=== PATIENT | male | born 1980 | race Caucasian/White ===

== ENCOUNTER 2021-10-29 20:19 | Emergency (ER) | payer BC, SELFPAY ==
[2021-10-29 20:23] VITALS: BP 128/90; PULSE 56; RESP 18; TEMP 36.7; O2SAT 96; BMI 30.5
--- NOTE | 2021-10-29 20:39 | ED.GENADULT ---
HPI - General Adult General Chief complaint: Unspecified Complaint, Adult Stated complaint: Fishing hook in face Time Seen by Provider: 10/29/21 20:24 History of Present Illness HPI narrative: This 41-year-old male comes in with a fishhook stuck in his cheek. A friend was casting the hook and it caught him in the cheek and it got yanked into the tissue with the дмитрий on the hook. He attempted to push the hook through but was unsuccessful. He states that his tetanus is not up-to-date. Related Data Home Medications Medication Instructions Recorded Confirmed No Known Home Medications 10/29/21 10/29/21 Allergies Allergy/AdvReac Type Severity Reaction Status Date / Time No Known Drug Allergies Allergy Verified 10/29/21 20:27 Review of Systems Status of ROS: Reports: 10 or more systems reviewed and unremarkable except as noted in History and below Narrative: Constitutional: No fevers, no weight gain or loss. Eyes: No discharge. No vision changes. HENT: No congestion, no sore throat, no ear pain. Cardiovascular: No chest pain, no palpitations. Respiratory: No shortness of breath, no wheezes, no cough. Gastrointestinal: No abdominal pain, no vomiting, no diarrhea. Genitourinary: No dysuria, no hematuria. Musculoskeletal: Normal range of motion. Skin: No rashes, no pruritis. Neurological: No dizziness, weakness, sensory change, speech change. Endo/Heme/Allergies: No bruising or bleeding. No polydipsia. Pysch: no suicidality, no anxiety, no insomnia. All other systems reviewed and are negative. PFSH PFS Social History Smoking Status: Never smoker How often do you have a drink containing alcohol: 2-3 times a week AUDIT-C Alcohol total score: 3 Non-prescribed substance use: denies use Exam Narrative: Exam Narrative: Constitutional: Well-developed, well-nourished, no acute distress. HEENT: [place] lodged in the right cheek. Neck: Normal range of motion. Nontender. Supple. Heart: Intact distal pulses. Lungs: No chest discomfort. No wheezes, rhonchi, or rales. Abdomen: Nontender. Back: Normal range of motion. Extremities: Normal range of motion. No injury. Skin: Intact. No rash. Warm. No erythema or pallor. Neurologic: No altered sensation. No weakness. Alert and oriented. Psychiatric: No suicidality. No anxiety or depression. No insomnia. Nursing notes and vitals signs are reviewed. Const: Vital Signs, click to edit/add: Vital Signs - 24 hr 10/29/21 20:23 Temperature 98.0 F Pulse Rate [Right Pulse Oximeter] 56 L Respiratory Rate 18 Blood Pressure [Le ft Upper Arm] 128/90 H Pulse Oximetry 96 Oxygen Delivery Me thod Room Air Course Vital Signs Vital signs: Initial Vital Signs Temperature 98.0 F 10/29/21 20:23 Temperature Source Temporal Artery Scan 10/29/21 20:23 Pulse Rate 56 L 10/29/21 20:23 Respiratory Rate 18 10/29/21 20:23 Blood Pressure 128/90 H 10/29/21 20:23 Blood Pressure Mean 102 10/29/21 20:23 Blood Pressure Position Sitting 10/29/21 20:23 Pulse Oximetry 96 10/29/21 20:23 Oxygen Delivery Method 10/29/21 20:23 Vital Signs Temperature 98.0 F 10/29/21 20:23 Pulse Rate 56 L 10/29/21 20:23 Respiratory Rate 18 10/29/21 20:23 Blood Pressure 128/90 H 10/29/21 20:23 Pulse Oximetry 96 10/29/21 20:23 Oxygen Delivery Method 10/29/21 20:23 Temperature 98.0 F 10/29/21 20:23 Pulse Rate 56 L 10/29/21 20:23 Respiratory Rate 18 10/29/21 20:23 Blood Pressure 128/90 H 10/29/21 20:23 Pulse Oximetry 96 10/29/21 20:23 Oxygen Delivery Method 10/29/21 20:23 Medical Decision Making MDM Narrative Medical decision making narrative: This patient has a large fishhook with a дмитрий lodged in his right cheek. After cleansing the surface of the wound with alcohol swab I injected 1% lidocaine with epinephrine for anesthesia. With the assistance of a 11. Blade I was able to release the bar been remove the hook. There was a small amount of bleeding which stopped after a minute or 2 with direct pressure. A Band-Aid was applied. There is no need for suture repair as this was a simple puncture wound. The patient did receive a tetanus vaccination. Instructions were given regarding wound care. Discharge Plan Discharge Clinical Impression: Laceration Patient Disposition: Home, Self-Care Condition: Improved Additional Instructions: Keep wound clean and dry. Follow up with MD or return if worsening symptoms occur. Prescriptions: No Action No Known Home Medications Follow Up/Referrals: Augusto Thomas MD [Primary Care Provider] - Stand Alone Forms: [employer] Info Instructions
[2021-10-29] MEDS: TETANUS/DIPHTH/PERTUSSIS 0.5 ML SYRINGE IM (20:51)
== END 2021-10-29 20:57 | disposition home or self-care (01) ==
PROVIDERS: Emergency Provider Emergency Medicine Emergency Medical Services; PCP Internal Medicine
DX: S01.441A Puncture wound with foreign body of right cheek and temporomandibular area, initial encounter (principal); Z18.10 Retained metal fragments, unspecified
CPT/HCPCS: 10120; 90471; 90715; 99283

== ENCOUNTER 2021-12-08 20:45 | Emergency (ER) | payer BC, SELFPAY ==
[2021-12-08 20:50] VITALS: BP 139/84; PULSE 84; RESP 16; TEMP 36.6; O2SAT 99; BMI 29.8
--- NOTE | 2021-12-08 20:56 | ED.GENADULT ---
HPI - General Adult General Time Seen by Provider: 20:57 Date Seen: 12/08/21 Chief complaint: Laceration/Wound Stated complaint: FISH HOOK IN CHIN - PAINFUL Time Seen by Provider: 12/08/21 20:55 Source: patient, RN notes reviewed and old records reviewed Mode of arrival: ambulatory Limitations: no limitations History of Present Illness HPI narrative: Patient was fishing with his son neyda when he was casting and took a barbed trouble hook into his lower lip. He had a similar incident just about a month ago in his right cheek. They were able to back the hook out, tetanus was updated. Patient had no complications from that. The hook is in his lip, it is quite painful and he could not back it out or push it through due to the pain. Related Data Home Medications Medication Instructions Recorded Confirmed No Known Home Medications 10/29/21 10/29/21 Allergies Allergy/AdvReac Type Severity Reaction Status Date / Time No Known Drug Allergies Allergy Verified 10/29/21 20:27 Review of Systems Narrative: As per HPI PFSH PFSH Social History Smoking Status: Never smoker Do you use any of these nicotine containing products: None How often do you have a drink containing alcohol: 2-3 times a week AUDIT-C Alcohol total score: 3 Non-prescribed substance use: denies use Exam Const: Vital Signs, click to edit/add: Vital Signs - 24 hr 12/08/21 20:50 Temperature 97.9 F Pulse Rate [Left P ulse Oximeter] 84 Respiratory Rate 16 Blood Pressure [Le ft Upper Arm] 139/84 Pulse Oximetry 99 Oxygen Delivery Me thod Room Air Documenting provider has reviewed patient's vital signs: yes Common normals: no apparent distress, average body habitus, oriented x3, no limitations, healthy appearing and alert HENMT: Other: Has 1 дмитрий of the trouble walking into the right lower lip near the center, just along the vermilion border. 2 mL of 2% plain lidocaine were drawn up. About 1 mL was given locally and seemed to be enough as patient had good anesthesia with this. Eleven scalpel blade was used to make a little puncture along the trouble hook. The bit of difficulty I was eventually able to back this out. It did require 1 simple interrupted suture using 5 0 Ethilon line for reapproximation of this puncture to stop the bleeding. Patient tolerated this well there were no immediate complications. Neuro: Common normals: oriented x3 Sensorium/orientation: alert Course Vital Signs Vital signs: Initial Vital Signs Temperature 97.9 F 12/08/21 20:50 Temperature Source Temporal Artery Scan 12/08/21 20:50 Pulse Rate 84 12/08/21 20:50 Pulse Rhythm 12/08/21 20:50 Respiratory Rate 16 12/08/21 20:50 Blood Pressure 139/84 12/08/21 20:50 Blood Pressure Mean 102 12/08/21 20:50 Blood Pressure Position Sitting 12/08/21 20:50 Pulse Oximetry 99 12/08/21 20:50 Oxygen Delivery Method 12/08/21 20:50 Vital Signs Temperature 97.9 F 12/08/21 20:50 Pulse Rate 84 12/08/21 20:50 Respiratory Rate 16 12/08/21 20:50 Blood Pressure 139/84 12/08/21 20:50 Pulse Oximetry 99 12/08/21 20:50 Oxygen Delivery Method 12/08/21 20:50 Temperature 97.9 F 12/08/21 20:50 Pulse Rate 84 12/08/21 20:50 Respiratory Rate 16 12/08/21 20:50 Blood Pressure 139/84 12/08/21 20:50 Pulse Oximetry 99 12/08/21 20:50 Oxygen Delivery Method 12/08/21 20:50 Critical Care Time Critical Care Time Critical Care Time: No Discharge Plan Discharge Clinical Impression: Fish hook in lip Condition: Stable Instructions: Care For Your Stitches (ED) Additional Instructions: Stitch from the lip should be assess for removal in about 5 days. Can use bacitracin to the wound until it is healed. If there is any concern for infection, please seek re-evaluation. Prescriptions: No Action No Known Home Medications Follow Up/Referrals: Augusto Thomas MD [Primary Care Provider] - Stand Alone Forms: [employer] Info Instructions
== END 2021-12-08 21:30 | disposition home or self-care (01) ==
LOC: ED 21:25
PROVIDERS: Emergency Provider Family Medicine; PCP Internal Medicine
DX: S01.541A Puncture wound with foreign body of lip, initial encounter (principal); W26.8XXA Contact with other sharp object(s), not elsewhere classified, initial encounter; W45.8XXA Other foreign body or object entering through skin, initial encounter; W20.8XXA Other cause of strike by thrown, projected or falling object, initial encounter; Y93.89 Activity, other specified; Y92.838 Other recreation area as the place of occurrence of the external cause
CPT/HCPCS: 10120; 99282; 99283

== ENCOUNTER 2022-06-11 17:48 | Emergency (ER) | payer BC, SELFPAY ==
[2022-06-11 17:51] VITALS: BP 149/81; RESP 18; TEMP 36.2; O2SAT 95; BMI 29.2
--- NOTE | 2022-06-11 18:27 | ED_ITS ---
HPI - General Adult General Time Seen by Provider: 18:27 Date Seen: 06/11/22 Chief complaint: Unspecified Complaint, Adult Stated complaint: Insomnia Time Seen by Provider: 06/11/22 18:20 Source: patient Mode of arrival: ambulatory Limitations: no limitations History of Present Illness HPI narrative: Jake is a 41 year old male with no past medical history who presents emergency department via private car with with insomnia. According to patient he has had ongoing insomnia over the last 6 months. Patient states over the last few weeks it is progressively got worse, on Friday night he tried some CBD oil and a half ago me to help him fall asleep, last night he tried it but was up for 24 hours, he finds himself walking around, he laid back down all the lights off fan going but unable to fall asleep. His biggest complaint is fatigue. He has had increased urinary frequency, denies any blood in the urine, pain on urination, penile discharge or any penile lesions. He has had normal bowel movements. He has had a 15 lb weight loss over the last 6 months, however he has been working out daily, with weightlifting and recently started running 2 weeks ago. No history of any malignancy in the family, no history of any thyroid problems in the family. He went to urgent care, they told him to stay off alcohol and caffeine, did not do any workup. He is scheduled to see a primary care provider June 25. Denies any fevers or chills, he denies any night sweats. Work has been stressful but denies any anxiety or depression. No other concerns at this time. Related Data Home Medications Medication Instructions Recorded Confirmed No Known Home Medications 10/29/21 10/29/21 Allergies Allergy/AdvReac Type Severity Reaction Status Date / Time No Known Drug Allergies Allergy Verified 06/11/22 17:55 Review of Systems Status of ROS: Reports: 10 or more systems reviewed and unremarkable except as noted in History and below PFSH PFSH Social History Smoking Status: Never smoker Do you use any of these nicotine containing products: None How often do you have a drink containing alcohol: 2-3 times a week AUDIT-C Alcohol total score: 3 Non-prescribed substance use: denies use service: Yes Exam Narrative: Exam Narrative: General: No obvious distress sitting comfortably, well developed, well nourished HEENT: Tympanic membranes within normal limits bilateral oropharynx is clear and moist pupils equal round reactive to light, Neck: Supple full range of motion, no tracheal deviation, nontender the thyroid Lungs: CTA bilaterally Heart: Normal sinus rhythm S1-S2 Abdomen: Soft nontender, no masses organomegaly, bowel sounds present. Extremities: +5 strength upper lower extremities, no lower extremity edema Neural: Alert awake and oriented x3, GCS 15, ambulation with normal normal limits Psych: Of mood and affect normal Const: Vital Signs, click to edit/add: Vital Signs - 24 hr 06/11/22 17:51 Temperature 97.1 F L Respiratory Rate 18 Blood Pressure [Ri ght Upper Arm] 149/81 H Pulse Oximetry 95 Oxygen Delivery Me thod Room Air Course Course Hospital Course: 6:30 PM: AIDET performed. Vitals are normal, workup will include basic labs including CBC, CMP, magnesium, TSH, urinalysis, seems more related to stress or anxiety, may consider giving short course of Ativan at night to help him relax and sleep, he does have follow-up June 25 with a primary care provider. No imaging to be obtained. Differential diagnosis include but not limited metabolic derangements, obstructive sleep apnea, depression anxiety, bipolar disorder, schizophrenia, PTSD, personality disorder, ADHD, chemical dependence as well as other etiologies. Reevaluation(s) Reevaluation #1: 8:00 PM: Patient was updated on his lab results, CBC, CMP, magnesium TSH and urinalysis all unremarkable. Patient was asymptomatic in the emergency department, plan would be to discharge prescription for Ativan 1 mg to be used as needed every 4-6 hours help with anxiety and sleep, patient has proper follow-up on 06/25, reasons to return were given. Vital Signs Vital signs: Initial Vital Signs Temperature 97.1 F L 06/11/22 17:51 Temperature Source Temporal Artery Scan 06/11/22 17:51 Respiratory Rate 18 06/11/22 17:51 Blood Pressure 149/81 H 06/11/22 17:51 Blood Pressure Mean 103 06/11/22 17:51 Blood Pressure Position Sitting 06/11/22 17:51 Pulse Oximetry 95 06/11/22 17:51 Oxygen Delivery Method Room Air 06/11/22 17:51 Vital Signs Temperature 97.1 F L 06/11/22 17:51 Respiratory Rate 18 03/21/23 17:51 Blood Pressure 149/81 H 06/11/22 17:51 Pulse Oximetry 95 06/11/22 17:51 Oxygen Delivery Method Room Air 06/11/22 17:51 Temperature 97.1 F L 06/11/22 17:51 Respiratory Rate 18 06/11/22 17:51 Blood Pressure 149/81 H 06/11/22 17:51 Pulse Oximetry 95 06/11/22 17:51 Oxygen Delivery Method Room Air 06/11/22 17:51 Medical Decision Making Lab Data Labs: Lab Results 06/11/22 06/11/22 Range/Units 18:53 19:49 WBC 10.31 (4.50-11.00) K/uL RBC 5.11 (4.30-5.90) m/uL Hgb 15.4 (13.5-17.5) gm/dL Hct 44.5 (37.0-53.0) % MCV 87 (80-100) fL MCH 30 (26-34) pg MCHC 35 (32-36) gm/dL RDW Coeff of Rocio 11.6 (11.5-15.5) % Plt Count 248 (140-440) K/uL Neut % (Auto) 48.1 (42.0-72.0) % Lymph % (Auto) 40.3 (20-44) % [place] % (Auto) 7.7 (0.0-11.0) % Eos % (Auto) 3.4 (0.0-7.0) % Baso % (Auto) 0.3 (0.0-3.0) % Neut # (Auto) 4.96 (1.7-7.0) K/uL Lymph # (Auto) 4.16 H (0.90-2.90) K/uL [place] # (Auto) 0.80 (0.00-0.90) K/UL Eos # (Auto) 0.35 (0.00-0.50) K/uL Baso # (Auto) 0.03 (0.00-0.30) K/uL Sodium 137 (135-149) mmol/L Potassium 4.4 (3.6-5.1) mmol/L Chloride 105 (96-114) mmol/L Carbon Dioxide 28 (20-32) mmol/L BUN 23 (5-24) mg/dL Creatinine 1.0 (0.5-1.5) mg/dL Estimated Creat Clear 107.78 Estimated GFR 98 ml/min Glucose 111 (60-115) mg/dL Calcium 9.1 (8.4-10.6) mg/dL Magnesium 2.2 (1.5-2.6) mg/dL Total Bilirubin 0.4 (0.1-1.5) mg/dL AST 31 (12-35) U/L ALT 33 (4-50) U/L Alkaline Phosphatase 66 (40-150) U/L C-Reactive Protein 0.5 (0.5-1.0) mg/dL Total Protein 7.7 (6.0-8.3) g/dL Albumin 4.3 (3.3-5.0) g/dL TSH 2.530 (0.270-4.20) uIU/mL Urine Color Yellow (Yellow) Urine Appearance Clear (Clear) Urine pH 7.0 (5.0-8.5) Ur Specific [place] 1.020 (1.000-1.030) Urine Protein Negative (Negative) Urine Glucose (UA) Negative (Negative) Urine Ketones Negative (Negative) Urine Blood Negative (Negative) Urine Nitrite Negative (Negative) Urine Bilirubin Negative (Negative) Urine Urobilinogen 0.2 (0.2-1.0) Ur Leukocyte Esterase Negative (Negative) Discharge Plan Discharge Clinical Impression: Insomnia Patient Disposition: Home, Self-Care Condition: Improved Instructions: Insomnia (ED) Additional Instructions: To take Ativan 1 mg, as needed, for increased anxiety or racing thoughts, to follow-up with primary care provider as scheduled on 06/25, return if worsening symptoms. Activity Level: No Restrictions Discharge Diet: Regular Prescriptions: No Action No Known Home Medications Follow Up/Referrals: Augusto Thomas MD [Primary Care Provider] - Stand Alone Forms: [employer] Info Instructions Discharge Comment: Patient and spouse verbalized understanding of discharge instructions, provided with intamed prescription at discharge.
[2022-06-11 19:00] LABS: Basophils Absolute Auto 0.03 K/uL (0.00-0.30); Basophils Percent Auto 0.3 % (0.0-3.0); Eosinophils Absolute Auto 0.35 K/uL (0.00-0.50); Eosinophils Percent Auto 3.4 % (0.0-7.0); Hematocrit 44.5 % (37.0-53.0); Hemoglobin* 15.4 gm/dL (13.5-17.5); Immature Granulocytes Abs Auto 0.02 K/uL (0.00-0.30); Immature Granulocytes Pct Auto 0.2 %; Lymphocytes Absolute Auto 4.16 K/uL (0.90-2.90); Lymphocytes Percent Auto 40.3 % (20-44); Mean Corpuscular HGB Conc 35 gm/dL (32-36); Mean Corpuscular Hemoglobin 30 pg (26-34); Mean Corpuscular Volume 87 fL (80-100); Monocytes Percent Auto 7.7 % (0.0-11.0); Neutrophils Absolute Auto 4.96 K/uL (1.7-7.0); Neutrophils Percent Auto 48.1 % (42.0-72.0); Platelet Count* 248 K/uL (140-440); RDW Coefficient of Variation % 11.6 % (11.5-15.5); Red Blood Count 5.11 m/uL (4.30-5.90); White Blood Count* 10.31 K/uL (4.50-11.00)
[2022-06-11 19:08] LABS: Slide Review Reflex No
[2022-06-11 19:12] LABS: Albumin* 4.3 g/dL (3.3-5.0); Chloride* 105 mmol/L (96-114)
[2022-06-11 19:13] LABS: Potassium* 4.4 mmol/L (3.6-5.1); Sodium* 137 mmol/L (135-149)
[2022-06-11 19:15] LABS: Bilirubin Total* 0.4 mg/dL (0.1-1.5); Est. Creatinine Clearance* 107.78; Estimated Glomerular Filt Rate 98 ml/min
[2022-06-11 19:16] LABS: Alanine Aminotransferase* 33 U/L (4-50); Alkaline Phosphatase* 66 U/L (40-150); Aspartate Amino Transferase* 31 U/L (12-35); Blood Urea Nitrogen* 23 mg/dL (5-24); Calcium* 9.1 mg/dL (8.4-10.6); Carbon Dioxide* 28 mmol/L (20-32); Glucose* 111 mg/dL (60-115); Magnesium* 2.2 mg/dL (1.5-2.6); Total Protein* 7.7 g/dL (6.0-8.3)
[2022-06-11 19:18] LABS: C Reactive Protein* 0.5 mg/dL (0.5-1.0)
[2022-06-11 19:54] LABS: Appearance Urine Clear (Clear); Bilirubin Urine Negative (Negative); Blood Urine Negative (Negative); Color Urine Yellow (Yellow); Glucose Urine Negative (Negative); Ketones Urine Negative (Negative); Leukocyte Esterase Urine Negative (Negative); Nitrite Urine Negative (Negative); Protein Urine Negative (Negative); Urobilinogen Urine 0.2 (0.2-1.0)
== END 2022-06-11 20:25 | disposition home or self-care (01) ==
PROVIDERS: Emergency Provider Student in an Organized Health Care Education/Training Program; PCP Internal Medicine
DX: G47.00 Insomnia, unspecified (principal)
CPT/HCPCS: 36415; 80053; 81003; 83735; 84443; 85025; 86140; 99282; 99283